=== PATIENT | female | born 1995 | race Caucasian/White ===

== ENCOUNTER 2018-06-14 14:25 | Emergency (ER) | payer OTHER ==
[2018-06-14 14:52] VITALS: BP 136/89
--- NOTE | 2018-06-14 15:20 | UC ---
Back Pain HPI - HPI Summary HPI Summary: Pt c/o sudden onset of low back pain that began ~ 4 days ago. Pt denies injury. Pt is a student at [employer] and reports that she carries a heavy backpack and sits for prolonged period of time for classes. - History of Current Complaint Chief Complaint: UCBackPain Stated Complaint: BACK PAIN Time Seen by Provider: 06/14/18 15:12 Hx Obtained From: Patient Hx Last Menstrual Period: 06/14/18 ?: No Onset/Duration: Sudden Onset, Worse Since - onset Timing: Constant Severity Initially: Mild Severity Currently: Moderate Pain Intensity: 8 Back Pain: Is Discrete @ - low back Character: Dull, Aching, Stiffness Aggravating Factor(s): Movement, Other - sitting Alleviating Factor(s): Nothing Associated Signs And Symptoms: Positive: Negative - Risk Factors AAA Risk Factors: Negative TAD Risk Factors: Negative Cauda Equina Risk Factors: Negative Epidural Abscess Risk Factors: Negative - Allergies/Home Medications Allergies/Adverse Reactions: Allergies Allergy/AdvReac Type Severity Reaction Status Date / Time No Known Allergies Allergy Verified 06/14/18 14:52 Home Medications: Home Medications Escitalopram Oxalate [Lexapro 20 mg] 20 mg PO DAILY 06/14/18 [History Confirmed 06/14/18] Methylphenidate TAB* [Ritalin TAB*] 20 mg PO DAILY 06/14/18 [History Confirmed 06/14/18] Norgestimate-Ethinyl Estradiol [Sprintec 28 Day Tablet] 1 tab PO DAILY 06/14/18 [History Confirmed 06/14/18] PMH/Surg Hx/FS Hx/Imm Hx Previously Healthy: Yes - Surgical History Surgical History: None - Family History Known Family History: Positive: Cardiac Disease Family History: no cardio-vascular issues in family history - Social History Occupation: Student Lives: With Family Alcohol Use: Occasionally Substance Use Type: None Smoking Status (MU): Never Smoked Tobacco Have You Smoked in the Last Year: Yes When Did the Patient Quit Smoking/Using Tobacco: 8 MOS AGO - Immunization History Vaccination Up to Date: Yes Review of Systems Constitutional: Negative Skin: Negative Eyes: Negative ENT: Negative Respiratory: Negative Cardiovascular: Negative Gastrointestinal: Negative Genitourinary: Negative Motor: Decreased ROM - low back Neurovascular: Negative Musculoskeletal: Decreased ROM - low back c/o ROM with pain, Myalgia Neurological: Negative Psychological: Negative Is Patient Immunocompromised?: No All Other Systems Reviewed And Are Negative: Yes Physical Exam Triage Information Reviewed: Yes Appearance: Pain Distress Vital Signs: Initial Vital Signs Temp 98.3 F 06/14/18 14:47 Pulse 100 06/14/18 14:47 Resp 18 06/14/18 14:47 BP 136/89 06/14/18 14:47 Pulse Ox 98 06/14/18 14:47 Vital Signs Reviewed: Yes Eye Exam: Normal ENT: Positive: Hearing grossly normal Dental Exam: Normal Neck exam: Normal Respiratory Exam: Normal Respiratory: Positive: No respiratory distress Musculoskeletal: Positive: Other: - c/o pain with ROM, low back lordosis cuve, flat. c/o pain wiht palpaltion at bilateral sciatic nerve Neurological Exam: Normal Psychological Exam: Normal Skin Exam: Normal Back Pain Course/Dx - Differential Dx/Diagnosis Differential Diagnosis/HQI/PQRI: Strain Provider Diagnoses: low back strain. low back spasm Discharge - Sign-Out/Discharge Documenting (check all that apply): Patient Departure All imaging exams completed and their final reports reviewed: No Studies - Discharge Plan Condition: Stable Disposition: HOME Prescriptions: Cyclobenzaprine TAB* [Flexeril 10 MG TAB*] 10 mg PO Q8H PRN #15 tab PRN Reason: Pain Ibuprofen TAB* [Motrin TAB* 800 MG] 800 mg PO Q8H PRN #21 tab PRN Reason: Pain Patient Education Materials: Acute Low Back Pain (ED), Lower Back Exercises (ED ) Referrals: Rene Hope MD [Primary Care Provider] - If Needed - Billing Disposition and Condition Condition: STABLE Disposition: Home
== END 2018-06-14 15:31 | disposition home or self-care (01) ==
LOC: UCCORT 14:25
DX: Z87.891 Personal history of nicotine dependence (principal); S39.012A Strain of muscle, fascia and tendon of lower back, initial encounter; X50.0XXA Overexertion from strenuous movement or load, initial encounter; Y93.89 Activity, other specified; Y92.89 Other specified places as the place of occurrence of the external cause
CPT/HCPCS: 99212; G0463

== ENCOUNTER 2019-01-12 20:39 | Emergency (ER) | payer OTHER ==
--- NOTE | 2019-01-12 20:59 | UC ---
Respiratory Complaint HPI - HPI Summary HPI Summary: 23 y/o female presents to the urgent care c/o headache and sinus pain/pressure x2 days. no fever/chills. tried mucinex prn w/ no improvement. - History of Current Complaint Stated Complaint: IBRAHIM,COUGH,CONGESTION,TIRED Time Seen by Provider: 01/12/19 20:55 Hx Obtained From: Patient Hx Last Menstrual Period: 06/14/18 - Allergies/Home Medications Allergies/Adverse Reactions: Allergies Allergy/AdvReac Type Severity Reaction Status Date / Time No Known Allergies Allergy Verified 01/12/19 20:59 Home Medications: Home Medications Sertraline* [Zoloft*] 1 tab BEDTIME 01/12/19 [History Confirmed 01/12/19] busPIRone TAB* [Buspar TAB*] 7.5 mg QPM 01/12/19 [History Confirmed 01/12/19] lamoTRIgine TAB(*) [Lamictal TAB(*)] 1 tab BEDTIME 01/12/19 [History Confirmed 01/12/19] PMH/Surg Hx/FS Hx/Imm Hx - Surgical History Surgical History: None - Family History Known Family History: Positive: None, Cardiac Disease Family History: no cardio-vascular issues in family history - Social History Alcohol Use: Occasionally Substance Use Type: None Smoking Status (MU): Never Smoked Tobacco Have You Smoked in the Last Year: Yes When Did the Patient Quit Smoking/Using Tobacco: 8 MOS AGO - Immunization History Vaccination Up to Date: Yes Respiratory Course/Dx - Differential Dx/Diagnosis Differential Diagnosis/HQI/PQRI: Influenza, Laryngitis, Sinusitis, Other - URI Provider Diagnosis: Upper respiratory infection Discharge - Sign-Out/Discharge Documenting (check all that apply): Patient Departure - D/c home All imaging exams completed and their final reports reviewed: No Studies - Discharge Plan Condition: Stable Disposition: HOME Patient Education Materials: Upper Respiratory Infection (ED) Referrals: Rene Hope MD [Primary Care Provider] - 3 Days Additional Instructions: 1-Please take ibuprofen PO q6-8hrs prn as instructed after meals to alleviate pain and swelling. Increase fluid intake, eat well, rest and avoid strenuous exercise 2- continue taking Mucinex PO to alleviate cough. 3-If symptoms do not improve or worsen please return to the urgent care or f/u with your PCP in 3 days for further evaluation and treatment. - Billing Disposition and Condition Condition: STABLE Disposition: Home
[2019-01-12 21:03] VITALS: BP 155/83
[2019-01-12 21:42] LABS: Influenza A Molecular NEGATIVE (Negative); Influenza B Molecular NEGATIVE (Negative)
== END 2019-01-12 22:11 | disposition home or self-care (01) ==
LOC: UCCORT 20:39
DX: J06.9 Acute upper respiratory infection, unspecified (principal)
CPT/HCPCS: 99211; G0463

== ENCOUNTER 2019-04-11 19:45 | Emergency (ER) | payer OTHER ==
[2019-04-11 20:06] VITALS: BP 158/93
--- NOTE | 2019-04-11 20:46 | UC ---
Throat Pain/Nasal Beto HPI - HPI Summary HPI Summary: 23-year-old female with cold symptoms head congestion over the past 2 days. Denies any fever or chills. She is a nonsmoker and no history of asthma. She states she did cough up some greenish sputum today. - History of Current Complaint Chief Complaint: UCGeneralIllness Stated Complaint: COUGH,FEVER Time Seen by Provider: 04/11/19 20:17 Hx Obtained From: Patient Hx Last Menstrual Period: 12/28/2018 ?: No Onset/Duration: Gradual Onset Severity: Mild Pain Intensity: 7 Cough: Productive - Productive cough of greenish sputum one time today. Associated Signs & Symptoms: Positive: Negative - Allergies/Home Medications Allergies/Adverse Reactions: Allergies Allergy/AdvReac Type Severity Reaction Status Date / Time No Known Allergies Allergy Verified 04/11/19 20:06 PMH/Surg Hx/FS Hx/Imm Hx Previously Healthy: Yes - Surgical History Surgical History: None - Family History Known Family History: Positive: None, Cardiac Disease Family History: no cardio-vascular issues in family history - Social History Alcohol Use: Occasionally Substance Use Type: None Smoking Status (MU): Never Smoked Tobacco Have You Smoked in the Last Year: Yes When Did the Patient Quit Smoking/Using Tobacco: 8 MOS AGO - Immunization History Vaccination Up to Date: Yes Review of Systems All Other Systems Reviewed And Are Negative: Yes ENT: Positive: Nasal Discharge, Sinus Congestion Respiratory: Positive: Shortness Of Breath, Cough - Productive cough of greenish sputum one time today. Patient states when she was coughing she was feeling mildly short of breath. Is Patient Immunocompromised?: No Physical Exam Triage Information Reviewed: Yes Appearance: Well-Appearing, No Pain Distress, Well-Nourished Vital Signs: Initial Vital Signs Temp 98.3 F 04/11/19 20:04 Pulse 108 04/11/19 20:04 Resp 28 04/11/19 20:04 BP 158/93 04/11/19 20:04 Pulse Ox 100 04/11/19 20:04 Vital Signs Reviewed: Yes Eyes: Positive: Conjunctiva Clear ENT: Positive: Hearing grossly normal, Pharynx normal, Nasal congestion, Nasal drainage - Clear nasal coryza, TMs normal, Uvula midline Neck: Positive: Supple, Nontender, No Lymphadenopathy Respiratory: Positive: Lungs clear, Normal breath sounds, No respiratory distress, No accessory muscle use Cardiovascular: Positive: RRR, No Murmur, Pulses Normal, Brisk Capillary Refill Musculoskeletal Exam: Normal Neurological Exam: Normal Psychological Exam: Normal Skin Exam: Normal Throat Pain/Nasal Course/Dx - Course Course Of Treatment: Chest x-ray: Negative as read by myself and Dr. Segovia. The patient is to continue her [id number] cold medications follow-up with her doctor in 3 or 4 days if no improvement. - Differential Dx/Diagnosis Provider Diagnosis: URI (upper respiratory infection) Discharge - Sign-Out/Discharge Documenting (check all that apply): Patient Departure All imaging exams completed and their final reports reviewed: No - Discharge Plan Condition: Fair Disposition: HOME Patient Education Materials: Upper Respiratory Infection (DC) Referrals: Rene Hope MD [Primary Care Provider] - Additional Instructions: Increase fluids, continue your Mucinex cold medication. Follow-up with your primary care provider in 3 or 4 days if no improvement. - Billing Disposition and Condition Condition: FAIR Disposition: Home
--- NOTE | 2019-04-13 11:44 | UC ---
- Progress Note Progress Note: Patient Name: DONTE BLANKENSHIP Medical Record#: [id number] Ordering Physician: Willow Martinez NP Acct.#: [id number] : 1995 Age: 23 Sex: F [facility] Exam Date: 04/11/192019 ADM Status: DEP ER Order Information: CHEST PA & LAT 2 VWS Accession Number: [id number] CPT: 27819 INDICATION: Productive cough and shortness of breath. COMPARISON: There are no relevant prior studies available for comparison. TECHNIQUE: Dual-energy PA and lateral views of the chest were obtained. FINDINGS: The heart is within normal limits in size. Mediastinal and hilar contours appear within normal limits. The lungs are clear. No pleural effusion is seen. IMPRESSION: NO EVIDENCE FOR ACTIVE CARDIOPULMONARY DISEASE. R0 Preliminary Imaging Read R0 <Electronically signed by Sheldon Pierre MD in OV> 04/12/19705 Dictated By: Sheldon Pierre MD Dictated Date/Time: 04/12/19705 Transcribed Date/Time: 04/12/19704 Copy to: CC:Rene Hope MD; Willow Martinez NP; Kate Segovia MD Imaging - [facility] [address] [address] ph ([phone]) ph ([phone]) ph ([phone]) This report is only to be considered final once signed by the Provider(s) as displayed in the "<Electronically Signed by >" field (s). Absence of a signature indicates the report is in a draft status and still needs to be finalized. In the event this document was created by someone other than the signing Provider, the individual initiating the document will be listed in the "Entered by:" or "Dictated by:" good. 1 of 1 Course/Dx - Diagnoses Provider Diagnoses: URI (upper respiratory infection) Discharge - Sign-Out/Discharge Documenting (check all that apply): Post-Discharge Follow Up All imaging exams completed and their final reports reviewed: Yes - Discharge Plan Condition: Fair Disposition: HOME Patient Education Materials: Upper Respiratory Infection (DC) Referrals: Rene Hope MD [Primary Care Provider] - Additional Instructions: Increase fluids, continue your Mucinex cold medication. Follow-up with your primary care provider in 3 or 4 days if no improvement. - Billing Disposition and Condition Condition: FAIR Disposition: Home
== END 2019-04-11 20:56 | disposition home or self-care (01) ==
LOC: UCCORT 19:45
DX: J06.9 Acute upper respiratory infection, unspecified (principal)
CPT/HCPCS: 71046; 99211; G0463